=== PATIENT | female | born 1955 | race Caucasian/White ===

== ENCOUNTER → 2017-08-02 | Outpatient (CLI) | payer BC ==
[~2017-08-02] MED LIST: AMT/25 PO; CHOL2000 PO; CIPR-255 PO; CLBCRM30 EXT; FENO145T26 PO; MULT-506 PO; MULT-663 PO; OMEG10007 PO; OXYC7.5T65 PO; PHEN-775 PO
--- NOTE | 2017-08-02 12:50 | MAMMOGRAPHY REPORT ---
BILATERAL DIGITAL SCREENING MAMMOGRAM WITH CAD: 08/02/2017 CLINICAL HISTORY: Routine screening. Patient has no complaints. TECHNIQUE: Current study was also evaluated with a Computer Aided Detection (CAD) system. Bilateral CC and MLO views were obtained. COMPARISON: Comparison is made to exams dated: 08/01/2016 mammogram, 07/27/2015 mammogram, 4 mammogram, 07/22/2014 ultrasound, 07/13/2013 mammogram, and 07/09/2012 mammogram - [facility]. BREAST COMPOSITION: The tissue of both breasts is heterogeneously dense, which may obscure small mas ses. FINDINGS: No suspicious masses, calcifications, or areas of architectural distortion are noted in ei ther breast. There has been no significant interval change compared to prior exams. Scattered bilater al benign-appearing calcifications are not significantly changed. IMPRESSION: ACR BI-RADS CATEGORY 2: BENIGN There is no mammographic evidence of malignancy. A 1 year screening mammogram is recommended. The pa tient will receive written notification of the results. Approximately 10% of breast cancers are not detected with mammography. A negative mammographic report should not delay biopsy if a clinically suggestive mass is present. Angelica Patterson M.D. /:08/02/2017 12:23:55 Corporate Ethics Officer: Nayana Obrien, [facility] letter sent: Normal 1/2 BI-RADS Code: ACR BI-RADS Category 2: Benign
== END | disposition home or self-care (01) ==
LOC: C.MAMM 08:53
PROVIDERS: ATTEND Family Medicine
DX: Z12.31 Encounter for screening mammogram for malignant neoplasm of breast (principal)

== ENCOUNTER 2020-01-28 10:03 | Observation (INO) ==
--- NOTE | 2020-01-28 10:20 | Emergency Department Note ---
History of Present Illness General Chief complaint: Bite Stated complaint: INSECT BITE ON LT LEG Time Seen by Provider: 01/28/20 10:09 History of Present Illness Maximum Pain Intensity: 2 This is a 64-year-old female that presents to the emergency department via private vehicle with complaints of "insect bite on left leg". The patient states that this past Saturday evening she began with atraumatic left posterior knee swelling, specifically a small bump to the left posterior knee. She then awoke Saturday and notes that there was redness to the left posterior knee. She then was seen by the PCP on Saturday and prescribed Keflex. It was thought to either be mosquito or spider bite at that time. The patient states that she followed up with the PCP on Saturday and was worse despite the p.o. Keflex and was started on Bactrim. She had 2 doses yesterday and 1 dose today already. S he denies any pain at the site other than a small twinge of pain that is a 2/10 at times. She notes associated chills and hot sensation yesterday evening. She denies any history of DVT. She denies any pertinent past medical history or allergies. Home Medications Home Medications Medication Instructions Recorded Confirmed Type amitriptyline 25 mg PO HS 09/16/18 01/28/20 History calcium carbonate [Calcium 500] 500 mg PO QAM 09/16/18 01/28/20 History cholecalciferol (vitamin D3) 1,000 unit PO BID 09/16/18 01/28/20 History [Vitamin D3] fenofibrate micronized 134 mg PO PM 09/16/18 01/28/20 History multivitamin 1 tab PO QAM 09/16/18 01/28/20 History omega 0-zcn-nie-fish oil [Fish Oil] 1 cap PO QAM 09/16/18 01/28/20 History solifenacin 10 mg tablet 10 mg PO HS 06/18/19 01/28/20 History cephalexin 500 mg PO BID 01/28/20 01/28/20 History sulfamethoxazole-trimethoprim 1 tab PO BID 01/28/20 01/28/20 History Allergies Allergy/AdvReac Type Severity Reaction Status Date / Time No Known Drug Allergies Allergy Verified 01/28/20 11:10 Past Med/Surg History Medical History Fibromyalgia History of endometriosis Hyperlipidemia Osteoarthritis Scoliosis Surgical History History of bilateral tubal ligation History of cataract surgery LEFT 09/24/18: was given 2mg of versed and 100mcg of fentanyl without apparent complications History of colonoscopy History of esophagogastroduodenoscopy (EGD) History of oral surgery History of tonsillectomy Family History Mother Breast cancer Other Cancer Heart disease Hypertension Osteoporosis Social History Preferred Language: Israeli Communication Ability: Effective Mat Maker Required: No Beliefs That Will Affect Care: None Current Living Situation: Spouse Other Information That Helps Us Care for You: No Feels Safe at Home: Yes Safety Concerns: Feels Safe At This Time Smoking Status: Never smoker Second Hand Exposure: No ; Hx Alcohol Use: Yes Alcohol type: beer, wine and hard liquor Alcohol Intake Frequency: Rarely Hx Substance Use: No Review of Systems A total of 10 systems reviewed and were otherwise negative Physical Exam Vital Signs Vital Signs - 24 hr 01/28/20 10:05 01/28/20 11:45 01/28/20 13:30 Temperature 37.0 C Temperature Source Oral Pulse Rate 92 H Pulse Rate [Right Finger] 75 81 Pulse Rhythm [Right Finger] Regular Regular Pulse Strength [Right Finger] Normal Normal Respiratory Rate 20 18 18 Respiratory Effort / Characteristics Non-Labored Spontaneous Non-Labored Spontaneous Respiratory Depth Normal Normal Normal Respiratory Pattern Regular Regular Blood Pressure 158/79 H Blood Pressure [Right Arm] 144/76 H 149/71 H Blood Pressure Mean 105 Blood Pressure Mean [Right Arm] 98 97 Blood Pressure Position [Right Arm] Sitting Sitting Pulse Oximetry 95 98 98 Oxygen Delivery Method Room Air Room Air Room Air Sepsis Recent Fever Within 48 Hours No Sepsis Action Taken by Nursing No Action Required VITAL SIGNS - Vital signs and nursing notes were reviewed. Stable and afebrile. GENERAL -64-year-old female appearing her stated age who is in no acute di stress. Communicates well with provider and answers questions appropriately. SKIN -there is a large circular in nature patch of erythema to the left posterior knee region with a central area of minimally raised bulla. No active drainage. HEAD - NC/AT. EYES - PERRL with EOMI bilaterally. Sclera anicteric. EARS - No deformities of external structures noted on gross examination bilaterally. NOSE - Midline and without cyanosis. No epistaxis or purulent drainage noted. MOUTH/OROPHARYNX - Without perioral cyanosis. LUNGS - Chest wall symmetric without accessory muscle use, intercostals retractions, or central cyanosis. Normal vesicular breath sounds CTA B/L. No wheezes, rales, or rhonchi appreciated. CARDIAC - RRR with S1/S2. No murmur, rubs, or gallops appreciated. EXTREMITIES - No clubbing or peripheral cyanosis. No pretibial edema present. Skin as above. There is mild edema to left posterior knee region. +5/5 strength noted in UE/LE bilaterally. NEUROLOGIC - Cranial nerves II through XII grossly intact. Sensory intact to light touch throughout. PSYCH - A&O, and cooperates fully with examiner. Pt is very pleasant and interacts well with examiner. Course Administered Medications Vancomycin HCl 1,500 mg/ (Sodium Chloride) 530 mls @ 200 mls/hr IV NOW ONE Stop: 01/28/20 15:28 Last Admin: 01/28/20 14:00 Dose: 200 mls/hr Documented by: [id number] Discontinued Medications Ceftriaxone Sodium (Rocephin) 1,000 mg in 50 mls @ 100 mls/hr IV NOW STA Stop: 01/28/20 13:19 Last Admin: 01/28/20 13:30 Dose: 100 mls/hr Documented by: [id number] Medical Decision Making Laboratory Data Result diagrams: 01/28/20 11:02 01/28/20 11:02 Lab Results 01/28/20 01/28/20 01/28/20 Range/Units 11:02 11:02 11:02 WBC 4.44 L (4.8-10.8) K/uL RBC 3.86 L (4.2-5.4) M/uL Hgb 11.2 L (12.0-16.0) g/dL Hct 34.4 L (37-47) % MCV 89.1 (80-100) fL MCH 29.0 (25-34) pg MCHC 32.6 (32-36) g/dL RDW Std Deviation 42.9 (36.4-46.3) fL RDW Coeff of Rene 13.2 (11.5-14.5) % Plt Count 256 (130-400) K/uL MPV 10.0 (7.4-10.4) fL Immature Gran % (Auto) 0.0 % Neut % (Auto) 54.9 % Lymph % (Auto) 25.9 % Oldham % (Auto) 15.5 % Eos % (Auto) 3.2 % Baso % (Auto) 0.5 % Neut # (Auto) 2.44 (1.4-6.5) K/uL Lymph # (Auto) 1.15 L (1.2-3.4) K/uL Oldham # (Auto) 0.69 H (0.11-0.59) K/uL Eos # (Auto) 0.14 (0-0.5) K/uL Baso # (Auto) 0.02 (0-0.2) K/uL Immature Gran # (Auto) 0.00 (0.00-0.02) K/uL Sodium 137 (136-145) mmol/L Potassium 3.8 (3.5-5.1) mmol/L Chloride 107 (98-107) mmol/L Carbon Dioxide 23 (21-32) mmol/L Anion Gap 7.0 (3-11) BUN 16 (7-18) mg/dl Creatinine 1.19 (0.6-1.2) mg/dl Est Cr Clr Drug Dosing 49.5 ml/min Est GFR ( Amer) 55.1 Est GFR (Non-Af Amer) 47.5 BUN/Creatinine Ratio 13.4 (10-20) Glucose 85 (70-99) mg/dl Lactate (0.4-2.0) mmol/L Calcium 9.5 (8.5-10.1) mg/dl Magnesium 2.2 (1.8-2.4) mg/dl Total Bilirubin 0.4 (0.2-1) mg/dl AST 35 (15-37) U/L ALT 47 (12-78) U/L Alkaline Phosphatase 50 (45-117) U/L Total Protein 7.6 (6.4-8.2) gm/dl Albumin 3.6 (3.4-5.0) gm/dl Globulin 4.0 (2.5-4.0) gm/dl Albumin/Globulin Ratio 0.9 (0.9-2) Lyme Disease IgG Ab Negative (Negative) Lyme Disease IgM Ab Negative (Negative) 01/28/20 Range/Units 11:02 WBC (4.8-10.8) K/uL RBC (4.2-5.4) M/uL Hgb (12.0-16.0) g/dL Hct (37-47) % MCV (80-100) fL MCH (25-34) pg MCHC (32-36) g/dL RDW Std Deviation (36.4-46.3) fL RDW Coeff of Rene (11.5-14.5) % Plt Count (130-400) K/uL MPV (7.4-10.4) fL Immature Gran % (Auto) % Neut % (Auto) % Lymph % (Auto) % Oldham % (Auto) % Eos % (Auto) % Baso % (Auto) % Neut # (Auto) (1.4-6.5) K/uL Lymph # (Auto) (1.2-3.4) K/uL Oldham # (Auto) (0.11-0.59) K/uL Eos # (Auto) (0-0.5) K/uL Baso # (Auto) (0-0.2) K/uL Immature Gran # (Auto) (0.00-0.02) K/uL Sodium (136-145) mmol/L Potassium (3.5-5.1) mmol/L Chloride (98-107) mmol/L Carbon Dioxide (21-32) mmol/L Anion Gap (3-11) BUN (7-18) mg/dl Creatinine (0.6-1.2) mg/dl Est Cr Clr Drug Dosing ml/min Est GFR ( Amer) Est GFR (Non-Af Amer) BUN/Creatinine Ratio (10-20) Glucose (70-99) mg/dl Lactate 0.6 (0.4-2.0) mmol/L Calcium (8.5-10.1) mg/dl Magnesium (1.8-2.4) mg/dl Total Bilirubin (0.2-1) mg/dl AST (15-37) U/L ALT (12-78) U/L Alkaline Phosphatase (45-117) U/L Total Protein (6.4-8.2) gm/dl Albumin (3.4-5.0) gm/dl Globulin (2.5-4.0) gm/dl Albumin/Globulin Ratio (0.9-2) Lyme Disease IgG Ab (Negative) Lyme Disease IgM Ab (Negative) Imaging Data Radiologist's Impression: ULTRASOUND LEFT LOWER EXTREMITY VENOUS CLINICAL HISTORY: Left leg swelling. COMPARISON STUDY: No priors. TECHNIQUE: Real-time, grayscale, and color Doppler sonography of the deep veins of the left lower extremity was performed from the inguinal crease to the calf. Compression and augmentation were utilized. FINDINGS: There is no sonographic evidence of deep venous thrombosis identified in the left lower extremity. The common femoral, superficial femoral, and popliteal veins are patent and normally compressible. The greater saphenous vein and the profunda femoris vein at the junction with the common femoral vein are clear. The visualized calf veins are patent. IMPRESSION: There is no sonographic evidence of deep venous thrombosis identified in the left lower extremity. ACT 112: Negative or not required by law. Electronically signed by: Tanner Medel M.D. 01/28/2020 12:17 PM ULTRASOUND LEFT LOWER EXTREMITY NONVASCULAR CLINICAL HISTORY: Left posterior knee swelling and erythema. COMPARISON STUDY: No priors. FINDINGS: Real-time, grayscale, and color flow sonography of the soft tissues posterior to the knee is performed. There is soft tissue edema identified posterior to the knee and upper calf at the site of interest. There is subcutaneous fluid identified with no organized/drainable fluid collection seen. There is no significant regional hyperemia on color imaging. IMPRESSION: Soft tissue edema and subcutaneous fluid is identified in the popliteal soft tissues and in the upper calf at the site of interest. Correlate clinically for evidence of cellulitis or possibly a ruptured popliteal cyst. Clinical follow-up to resolution is recommended. Electronically signed by: Tanner Medel M.D. 01/28/2020 12:20 PM [facility] Narrative Patient was seen and evaluated as above in room C12. Review was performed of nursing notes and vital signs. I did review pertinent previous visits and patient history. After obtaining a thorough history and physical examination the above work up was performed. She presents to us today with atraumatic erythema and edema to the left posterior calf. On examination this is cellulitis but certainly wanted to obtain ultrasound to rule out deeper clot versus abscess. She has been on antibiotics for the past several days. There is decrease in white blood cell, red blood cell and hemoglobin. This was compared to previous and these are somewhat newer findings. Ultrasound results as above. No DVT. No drainable abscess. I did review the labs with the patient. Given the patient with worsening infection despite continued p.o. antibiotics I do believe that further evaluation and management in the inpatient setting would be warranted. I will note that she did just start the Bactrim yesterday and is only had 3 total doses however given the size of the erythema and involvement do believe IV antibiotics inpatient are warranted. I did consider providing Dalvance to the patient however given that there are small bulla formation in the central most area of the infection do believe that it would not be reasonable to use this medication. I chose vancomycin and Rocephin. I discussed the case with the hospitalist. Please refer to further documentation regarding her stay. While in the department, I personally reevaluated the patient several times and each time the patient was found to be resting comfortably. The patient was educated upon management, educated upon todays findings/results, educated upon importance of follow up from today's visit, educated upon symptoms in which to return, had questions answered prior to discharge, verbalized understanding, and was discharged home in good condition. Case was discussed with the attending physician. In the evaluation and treatment of this patient the following differential diagnoses were entertained: Cellulitis, abscess, DVT, popliteal cyst, sepsis, lymphangitis, among others. Impression & Plan Cellulitis of left leg Discharge Plan Visit Data Chief Complaint: Bite Stated Complaint: INSECT BITE ON LT LEG ED Provider: [facility] Midlevel Provider: Anthony Ruggiero Discharge Problem: Cellulitis of left leg Patient Disposition: Admitted As Inpatient Condition: Good Discharge Instructions Interventions: ED Discharge Assessment Last Done: 01/28/20 15:01 Forms Stand Alone Forms: My [facility], Virtual Emergency Department, Important Visit Information Prescriptions Prescriptions: No Action solifenacin [Vesicare] 10 mg tablet 10 mg PO HS RF: 0 multivitamin Tablet 1 tab PO QAM RF: 0 fenofibrate micronized 134 mg Capsule 134 mg PO PM RF: 0 amitriptyline 25 mg Tablet 25 mg PO HS RF: 0 cholecalciferol (vitamin D3) [Vitamin D3] 2,000 unit Capsule 1,000 unit PO BID RF: 0 omega 5-hmy-lsn-fish oil [Fish Oil] 1,000 mg (120 mg-180 mg) Capsule 1 cap PO QAM RF: 0 calcium carbonate [Calcium 500] 500 mg calcium (1,250 mg) Tablet 500 mg PO QAM RF: 0 sulfamethoxazole-trimethoprim 800-160 mg tablet 1 tab PO BID RF: 0 cephalexin 500 mg capsule 500 mg PO BID RF: 0 Referrals Referrals: Shannan Lopez DO [Primary Care Provider] -
[2020-01-28 11:26] LABS: Basophils # (auto) 0.02 K/uL (0-0.2); Basophils % (auto) 0.5 %; Eosinophils # (auto) 0.14 K/uL (0-0.5); Eosinophils % (auto) 3.2 %; Hematocrit (blood only) 34.4 % (37-47); Hemoglobin 11.2 g/dL (12.0-16.0); Lymphocytes # (auto) 1.15 K/uL (1.2-3.4); Lymphocytes % (auto) 25.9 %; Mean Corpuscular Hgb Conc 32.6 g/dL (32-36); Mean Corpuscular Volume 89.1 fL (80-100); Monocytes # (auto) 0.69 K/uL (0.11-0.59); Monocytes % (auto) 15.5 %; Neutrophils # (auto) 2.44 K/uL (1.4-6.5); Neutrophils % (auto) 54.9 %; Platelet Count 256 K/uL (130-400); RDW Coefficient of Variation 13.2 % (11.5-14.5); RDW Standard Deviation 42.9 fL (36.4-46.3); Red Blood Count 3.86 M/uL (4.2-5.4); White Blood Count 4.44 K/uL (4.8-10.8)
[2020-01-28 11:42] LABS: Albumin Level 3.6 gm/dl (3.4-5.0); BUN Creatinine Ratio 13.4 (10-20); Calcium 9.5 mg/dl (8.5-10.1); Creatinine Clr Calc Pharmacy 49.5 ml/min; Est GFR (African American) 55.1; Est GFR (Non-African American) 47.5; Magnesium 2.2 mg/dl (1.8-2.4); Potassium 3.8 mmol/L (3.5-5.1)
[2020-01-28 11:44] LABS: Albumin Globulin Ratio 0.9 (0.9-2); Bilirubin,Total 0.4 mg/dl (0.2-1); Total Protein 7.6 gm/dl (6.4-8.2)
[2020-01-28 12:18] LABS: Lyme Ab IgM w/WB Rflx Negative (Negative)
--- NOTE | 2020-01-28 12:19 | Ultrasound Report ---
ULTRASOUND LEFT LOWER EXTREMITY VENOUS CLINICAL HISTORY: Left leg swelling. COMPARISON STUDY: No priors. TECHNIQUE: Real-time, grayscale, and color Doppler sonography of the deep veins of the left lower ext remity was performed from the inguinal crease to the calf. Compression and augmentation were utilized . FINDINGS: There is no sonographic evidence of deep venous thrombosis identified in the left lower ext remity. The common femoral, superficial femoral, and popliteal veins are patent and normally compress ible. The greater saphenous vein and the profunda femoris vein at the junction with the common femora l vein are clear. The visualized calf veins are patent. IMPRESSION: There is no sonographic evidence of deep venous thrombosis identified in the left lower e xtremity. ACT 112: Negative or not required by law. Electronically signed by: Tanner Medel M.D. 01/28/2020 12:17 PM
[2020-01-28 12:21] LABS: Lyme Ab IgG w/WB Rflx Negative (Negative)
--- NOTE | 2020-01-28 12:21 | Ultrasound Report ---
ULTRASOUND LEFT LOWER EXTREMITY NONVASCULAR CLINICAL HISTORY: Left posterior knee swelling and erythema. COMPARISON STUDY: No priors. FINDINGS: Real-time, grayscale, and color flow sonography of the soft tissues posterior to the knee i s performed. There is soft tissue edema identified posterior to the knee and upper calf at the site o f interest. There is subcutaneous fluid identified with no organized/drainable fluid collection seen. There is no significant regional hyperemia on color imaging. IMPRESSION: Soft tissue edema and subcutaneous fluid is identified in the popliteal soft tissues and in the upper calf at the site of interest. Correlate clinically for evidence of cellulitis or possibl y a ruptured popliteal cyst. Clinical follow-up to resolution is recommended. Electronically signed by: Tanner Medel M.D. 01/28/2020 12:20 PM
[2020-01-28] MEDS ORDERED: VANCOMYCIN HCL 1,500 MG in SODIUM CHLORIDE 0.9% 500 ML IV ONE (12:50)
[2020-01-28] MEDS ORDERED: VANCOMYCIN CONSULT ACTIVE PRN ×2 (12:50→15:55)
[2020-01-28] MEDS ORDERED: cefTRIAXone SODIUM 1,000 MG/50 ML BAG IV STA (12:50)
--- NOTE | 2020-01-28 13:28 | History & Physical Report ---
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 Pt states that she first noted a bump on the back of her L knee on Saturday. It was not red and no swelling or pain at that time. On Saturday she noticed it was red and "spreading" around the back of her knee. She was seen by PCP on Saturday and started on keflex. She had worsening of the redness and swelling. As well as developing blisters and TTP around the site. She returned to PCP yesterday for f/u and region was noted to be worse. She was changed to bactrim at that time. She started the bactrim last night and took another dose this AM. She felt that the region was not worse today, but not improving, so she came to the ED. The blister on the posterior knee ruptured on its own. She did not manipulate it at all. Pt states that otherwise she has felt fine. She has no pain to the L posterior knee until she pushes on it. Pt denies fever, SOB, chest pain, abd pain, n/v/c/ d. Pt denies prior hx of similar issues or hx of abx resistant infections. 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 No one in her family with hx of resistant infections either. She does not remember a bug bite or trauma to the area. Allergies Allergy/AdvReac Type Severity Reaction Status Date / Time No Known Drug Allergies Allergy Verified 01/28/20 11:10 Home Medications Home Medications Medication Instructions Recorded Confirmed Type amitriptyline 25 mg PO HS 09/16/18 01/28/20 History calcium carbonate [Calcium 500] 500 mg PO QAM 09/16/18 01/28/20 History cholecalciferol (vitamin D3) 1,000 unit PO BID 09/16/18 01/28/20 History [Vitamin D3] fenofibrate micronized 134 mg PO PM 09/16/18 01/28/20 History multivitamin 1 tab PO QAM 09/16/18 01/28/20 History omega 7-hzk-wif-fish oil [Fish Oil] 1 cap PO QAM 09/16/18 01/28/20 History solifenacin 10 mg tablet 10 mg PO HS 06/18/19 01/28/20 History cephalexin 500 mg PO BID 01/28/20 01/28/20 History sulfamethoxazole-trimethoprim 1 tab PO BID 01/28/20 01/28/20 History Past Med/Surg History Medical History Fibromyalgia History of endometriosis Hyperlipidemia Osteoarthritis Scoliosis Surgical History History of bilateral tubal ligation History of cataract surgery LEFT 09/24/18: was given 2mg of versed and 100mcg of fentanyl without apparent complications History of colonoscopy History of esophagogastroduodenoscopy (EGD) History of oral surgery History of tonsillectomy Family History Mother Breast cancer Other Cancer Heart disease Hypertension Osteoporosis Social History (Updated 01/28/20 @ 13:25 by Diana Payan DO) Preferred Language: Japanese Communication Ability: Effective Exercise Planner Required: No Beliefs That Will Affect Care: None Current Living Situation: Spouse Other Information That Helps Us Care for You: No Feels Safe at Home: Yes Safety Concerns: Feels Safe At This Time Smoking Status: Never smoker Second Hand Exposure: No ; Hx Alcohol Use: Yes Alcohol type: beer, wine and hard liquor Alcohol Intake Frequency: Rarely Hx Substance Use: No Review of Systems Review of Systems: Pertinent positives and negatives reviewed in HPI--all others negative Physical Exam Constitutional: WD/WN, vitals as above Eyes: normal visual saeed by confrontation and + anicteric sclerae Neck: normal visual inspection and trachea midline Respiratory: normal respiratory effort, lungs clear to auscultation Cardiovascular: Rate/Rhythm: regular rate and regular rhythm Gastrointestinal (Abdomen): Inspection/Auscultation: abdomen not distended Percussion/Palpation: abdomen soft; abdomen nontender Musculoskeletal: Head/Neck/Chest: normocephalic and head atraumatic negative for pedal edema, peripheral pulses intact Skin: L posterior aspect of knee with rupture blister, redness, swelling, TTP Ink lines in place Neurologic: awake; not confused Speech / Cognition: normal speech Psychiatric: A+Ox3, euthymic affect Results & Data Results & Data ([facility]) Vital Signs (Past 12 Hours) Vital Signs Temp Pulse Resp BP Pulse Ox 01/28/20 10:05 37.0 C 92 H 20 158/79 H 95 Diagnostic Findings L LE US: neg for DVT, neg for abscess Noted for cellulitis vs ruptured popliteal cyst Code Status & VTE Plan Code Status Full code VTE Prophylaxis Plan VTE Prophylaxis will be ordered: Yes PG Care Time/CCT Total # of Minutes Spent Total Time Spent with Patient: Total time spent is greater than 50% in coordination of care (as documented) at patient's floor/unit and/or counseling patient: Coding Level of Care Code 82052 OBS Care - Level 3 Diagnoses Cellulitis of left leg L03.116 Hypokalemia E87.6 Abnormal WBC count D72.9 Fibromyalgia M79.7 Hyperlipidemia E78.5 DVT prophylaxis Z29.9
[2020-01-28] MEDS ORDERED: MAGNESIUM HYDROXIDE SUSP 30 ML UDC PO PRN (15:55)
[2020-01-28] MEDS ORDERED: ONDANSETRON INJ 2 MG/ML 2 ML VIAL IV PRN (15:55)
[2020-01-28] MEDS ORDERED: POTASSIUM PHOS 3 MMOL/1 ML INFUSION IV STA (15:55)
[2020-01-28] MEDS ORDERED: ACETAMINOPHEN 325 MG TAB PO PRN (15:55)
[2020-01-28] MEDS ORDERED: POTASSIUM PHOSPHATE 15 MMOL in SODIUM CHLORIDE 0.9% 250 ML IV ONE (16:30)
--- NOTE | 2020-01-28 18:34 | Pharmacy Report ---
Pharmacy Abx Initial Consult - Date of Service January 28, 2020 - Pharmacy Dosing Scope Date of Consult: 01/28/20 Consultation requested by: Dr. Payan Pharmacy is consulted to initiate Vancomycin IV/PO dosing therapy, order appropriate labs and adjust drug dose/frequency. - Subjective The patient is a 64 year old F admitted on 01/28/20 13:23. - Objective Height: 5 ft 7 in Weight: 76.2 kg Vital Signs (Past 12hrs): Vital Signs Temp Pulse Pulse Resp BP BP Pulse Ox 01/28/20 15:49 37.1 C 87 18 158/55 H 98 01/28/20 13:30 81 18 149/71 H 98 01/28/20 11:45 75 18 144/76 H 98 01/28/20 10:05 37.0 C 92 H 20 158/79 H 95 Lab Results (24hrs): Laboratory Tests (24 Hours) 01/28/20 01/28/20 11:02 11:02 WBC 4.44 L Neut # (Auto) 2.44 Creatinine 1.19 Est Cr Clr Drug Dosing 49.5 Micro Results: 01/28/20 11:06 Aerobic Blood Culture - Pending Blood Anaerobic Blood Culture - Pending 01/28/20 11:02 Aerobic Blood Culture - Pending Blood Anaerobic Blood Culture - Pending - Risk Factors for Resistance * Antimicrobial use within the last 90 days: Keflex, Bactrim - Assessment & Plan Assessment 64 year old F admitted for cellulitis. * Failed keflex and bactrim as outpatient. * Blood cultures pending * Renal function appears to be at baseline * Patient meets criteria for vancomycin AUC dosing nomogram. AUC/IESHA is the preferred PK/PD target for vancomycin * Target AUC/IESHA = 400-600 * AUC guided dosing is effective and associated with decreased risk of nephrotoxicity Plan Vancomycin for treatment of cellulitis. Vancomycin IV * Estimated PK Parameters: Vd 0.7 L/kg, Kali 0.045 hr-1, t1/2 ~15 hr * Loading dose: 1500 mg (20 mg/kg) * Maintenance dose: 1000 mg IV (13 mg/kg) every 12 hours (based on AUC nomogram) * Goal trough level for cellulitis : 10 to 15 mcg/mL * Trough/Random level ordered for 01/30/20 @1130, prior to fourth maintenance dose. Pharmacy will continue to follow and will adjust dose/frequency as necessary. Thank you.
[2020-01-28] MEDS: CHOLECALCIFEROL 1,000 UNITS 25 MCG TAB PO SCH (20:46)
[2020-01-28] MEDS: FENOFIBRATE NANOCRYSTALLIZED 145 MG TABLET PO SCH (20:46)
[2020-01-28] MEDS: AMITRIPTYLINE HCL 25 MG TAB PO SCH (20:46)
[2020-01-28] MEDS: VANCOMYCIN HCL 1,000 MG in SODIUM CHLORIDE 0.9% 250 ML IV SCH (23:34)
[2020-01-29] MEDS ORDERED: VANCOMYCIN HCL 1,000 MG in SODIUM CHLORIDE 0.9% 250 ML IV SCH
[2020-01-29 08:16] LABS: Basophils # (auto) 0.03 K/uL (0-0.2); Basophils % (auto) 0.8 %; Eosinophils # (auto) 0.29 K/uL (0-0.5); Eosinophils % (auto) 7.8 %; Hematocrit (blood only) 34.8 % (37-47); Hemoglobin 11.2 g/dL (12.0-16.0); Immature Granulocytes # (auto) 0.01 K/uL (0.00-0.02); Immature Granulocytes % (auto) 0.3 %; Lymphocytes # (auto) 1.44 K/uL (1.2-3.4); Lymphocytes % (auto) 38.5 %; Mean Corpuscular Hemoglobin 29.2 pg (25-34); Mean Corpuscular Hgb Conc 32.2 g/dL (32-36); Mean Corpuscular Volume 90.6 fL (80-100); Mean Platelet Volume 10.5 fL (7.4-10.4); Monocytes # (auto) 0.51 K/uL (0.11-0.59); Monocytes % (auto) 13.6 %; Neutrophils # (auto) 1.46 K/uL (1.4-6.5); Platelet Count 269 K/uL (130-400); RDW Coefficient of Variation 13.3 % (11.5-14.5); Red Blood Count 3.84 M/uL (4.2-5.4); White Blood Count 3.74 K/uL (4.8-10.8)
[2020-01-29] MEDS: MULTIVITAMIN TAB PO SCH (08:27)
[2020-01-29] MEDS: CHOLECALCIFEROL 1,000 UNITS 25 MCG TAB PO SCH ×2 (08:28→20:55)
[2020-01-29] MEDS: OMEGA-3 (PURIFIED FISH OIL) 1 GM CAP PO SCH (08:28)
[2020-01-29] MEDS: CALCIUM CARBONATE 1250MG TAB PO SCH (08:28)
[2020-01-29 08:51] LABS: BUN Creatinine Ratio 12.1 (10-20); Calcium 9.1 mg/dl (8.5-10.1); Creatinine Clr Calc Pharmacy 52.1 ml/min; Est GFR (African American) 58.7; Est GFR (Non-African American) 50.6; Potassium 4.2 mmol/L (3.5-5.1)
--- NOTE | 2020-01-29 10:37 | Hospitalist Progress Note ---
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 (2) Hypokalemia: Replace and monitor (3) Abnormal WBC count: Low normal (5.9, 04/2019) prior Monitor (4) Fibromyalgia: continue amitriptyline (5) Hyperlipidemia: continue home meds (6) DVT prophylaxis: SCDs Admission and Anticipated Discharge Date Admission Date: January 28, 2020 Subjective Ms. Claudio has no pain. She did have some aches and chills before coming in but is no longer experiencing this. Her leg wound is improving ROS Constitutional: no chills, aches, sweats or fever Respiratory: no sob,cough, sputum, or wheezing Cardiac: no chest pain, palpitations, edema, orthopnea or lightheadedness GI: no abdominal pain, nausea, vomiting, diarrhea or constipation : no dysuria or hesitancy Extremities: no joint pain or weakness Skin:see HPI All other systems reviewed and negative Physical Exam Physical Exam: General: no distress Eyes: normal inspection, PERLL Respiratory: chest non tender, clear to auscultation, normal breath sounds, no respiratory distress, no accessory muscle use Cardiac: regular rate and rhythm, no rub or gallop, no murmur, no edema, no jvd GI/: active bowel sounds, no abd pain or tenderness, soft, non distended Extremities: normal range of motion, normal strength, non tender Neuro/Psych: alert and oriented x 3, normal mood and affect Skin: normal color, dry, rash decreased from demarcated border, no fluctuance, some induration around wound site Results & Data Results & Data ([facility]) Vital Signs (Past 12 Hours) Vital Signs Temp Pulse Resp BP Pulse Ox 01/29/20 07:55 36.8 C 87 16 135/74 94 01/29/20 03:46 36.9 C 74 16 151/78 H 95 01/28/20 23:53 36.9 C 20 149/59 H 97 PG Care Time/CCT Total # of Minutes Spent Total Time Spent with Patient: Total time spent is greater than 50% in coordination of care (as documented) at patient's floor/unit and/or counseling patient: Coding Level of Care Code 86172 Subseq Hosp Care Lvl 2 Diagnoses Cellulitis of left leg L03.116 Hypokalemia E87.6 Abnormal WBC count D72.9 Fibromyalgia M79.7 Hyperlipidemia E78.5 DVT prophylaxis Z29.9
[2020-01-29] MEDS ORDERED: cefTRIAXone SODIUM 1,000 MG in DEXTROSE 5% 50 ML IV SCH (12:00)
[2020-01-29] MEDS: VANCOMYCIN HCL 1,000 MG in SODIUM CHLORIDE 0.9% 250 ML IV SCH ×2 (12:17→23:45)
[2020-01-29] MEDS: AMITRIPTYLINE HCL 25 MG TAB PO SCH (20:55)
[2020-01-29] MEDS: FENOFIBRATE NANOCRYSTALLIZED 145 MG TABLET PO SCH (20:55)
[2020-01-30] MEDS: CHOLECALCIFEROL 1,000 UNITS 25 MCG TAB PO SCH (09:44)
[2020-01-30] MEDS: OMEGA-3 (PURIFIED FISH OIL) 1 GM CAP PO SCH (09:45)
[2020-01-30] MEDS: MULTIVITAMIN TAB PO SCH (09:45)
[2020-01-30] MEDS: CALCIUM CARBONATE 1250MG TAB PO SCH (09:45)
[2020-01-30] MEDS ORDERED: VANCOMYCIN TROUGH ONE (11:30)
[2020-01-30 11:44] LABS: Basophils # (auto) 0.05 K/uL (0-0.2); Basophils % (auto) 1.1 %; Eosinophils # (auto) 0.22 K/uL (0-0.5); Hematocrit (blood only) 36.4 % (37-47); Hemoglobin 11.7 g/dL (12.0-16.0); Immature Granulocytes # (auto) 0.02 K/uL (0.00-0.02); Immature Granulocytes % (auto) 0.5 %; Lymphocytes # (auto) 2.11 K/uL (1.2-3.4); Lymphocytes % (auto) 47.7 %; Mean Corpuscular Hemoglobin 29.1 pg (25-34); Mean Corpuscular Hgb Conc 32.1 g/dL (32-36); Mean Corpuscular Volume 90.5 fL (80-100); Mean Platelet Volume 10.1 fL (7.4-10.4); Monocytes # (auto) 0.36 K/uL (0.11-0.59); Monocytes % (auto) 8.1 %; Neutrophils # (auto) 1.66 K/uL (1.4-6.5); Neutrophils % (auto) 37.6 %; Platelet Count 331 K/uL (130-400); RDW Coefficient of Variation 13.1 % (11.5-14.5); RDW Standard Deviation 43.7 fL (36.4-46.3); Red Blood Count 4.02 M/uL (4.2-5.4); White Blood Count 4.42 K/uL (4.8-10.8)
[2020-01-30 12:03] LABS: Albumin Level 3.5 gm/dl (3.4-5.0); BUN Creatinine Ratio 15.2 (10-20); Calcium 9.7 mg/dl (8.5-10.1); Creatinine Clr Calc Pharmacy 51.2 ml/min; Est GFR (African American) 57.4; Est GFR (Non-African American) 49.5; Potassium 3.9 mmol/L (3.5-5.1)
[2020-01-30 12:05] LABS: Albumin Globulin Ratio 0.8 (0.9-2); Bilirubin,Total 0.4 mg/dl (0.2-1); Globulin 4.4 gm/dl (2.5-4.0); Total Protein 7.9 gm/dl (6.4-8.2)
[2020-01-30] MEDS: VANCOMYCIN HCL 1,000 MG in SODIUM CHLORIDE 0.9% 250 ML IV SCH (12:13)
--- NOTE | 2020-01-30 12:46 | Pharmacy Report ---
Pharmacy Abx Dose Short Note - Date of Service January 30, 2020 - Assessment & Plan Laboratory Tests 01/30/20 11:27 Vancomycin Trough 15.7 Assessment 64 year old F receiving Vancomycin for treatment of Cellulitis Blood cultures x2 show NGTD. SCr stable. Day # 3 of antimicrobial therapy. Patient also receiving Rocephin 1 gram IV q24- day #3 Plan Vancomycin * Trough level of 15.7 mcg/mL is therapeutic * Continue dose of 1000 mg IV every 12 hours * Goal trough level for Cellulitis: ~15 mcg/mL * Trough level ordered for: 02/01/20 at 1130 Pharmacy will continue to follow and will adjust dose/frequency as necessary. Thank you.
--- NOTE | 2020-01-30 13:32 | Discharge Summary ---
Date of Service January 30, 2020 Admission HPI Per Admitting Provider 64 y/o F c/o worsening LE redness and swelling. Pt states that she first noted a bump on the back of her L knee on Saturday. It was not red and no swelling or pain at that time. On Saturday she noticed it was red and "spreading" around the back of her knee. She was seen by PCP on Saturday and started on keflex. She had worsening of the redness and swelling. As well as developing blisters and TTP around the site. She returned to PCP yesterday for f/u and region was noted to be worse. She was changed to bactrim at that time. She started the bactrim last night and took another dose this AM. She felt that the region was not worse today, but not improving, so she came to the ED. The blister on the posterior knee ruptured on its own. She did not manipulate it at all. Pt states that otherwise she has felt fine. She has no pain to the L posterior knee until she pushes on it. Pt denies fever, SOB, chest pain, abd pain, n/v/c/d. Pt denies prior hx of similar issues or hx of abx resistant infections. 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 No one in her family with hx of resistant infections either. She does not remember a bug bite or trauma to the area. Principal Diagnosis Cellulitis Discharge Exam Constitutional WD/WN, vitals as above Respiratory normal respiratory effort, lungs clear to auscultation Cardiovascular RRR, no murmur, no edema Gastrointestinal (Abdomen) Inspection/Auscultation: abdomen normal to inspection and normal bowel sounds; abdomen not distended Percussion/Palpation: abdomen soft; abdomen nontender Musculoskeletal no cyanosis or clubbing, extremities motor strength 5/5 Skin erythema much decreased from yesterday, still with some induration around wound site Neurologic moves all extremities and awake Psychiatric A+Ox3, euthymic affect Discharge Data Allergies Allergy/AdvReac Type Severity Reaction Status Date / Time No Known Drug Allergies Allergy Verified 01/28/20 11:10 Consultations 01/28/20 12:51 ED Decision to Admit Stat Ordered Studies 01/28/20 10:20 US extremity non-vascular ltd Stat US venous doppler LE LT Stat Hospital Course (1) Cellulitis of left leg: LE US noted for cellulitis vs ruptured popliteal cyst No swelling of calf noted making ruptured cyst less likely Appears more infectious overall LE US noted for no DVT or abscess Failed outpt keflex, bactrim (although only 2 doses of bactrim given) 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 BC ngtd Rash with much decreased border from demarcated line at admission. No pain, afebrile, low wbc improving (2) Hypokalemia: resolved (3) Abnormal WBC count: Low normal (5.9, 04/2019) prior Today 4.42, would have patient follow up with pcp (4) Fibromyalgia: continue amitriptyline (5) Hyperlipidemia: continue home meds (6) DVT prophylaxis: SCDs Total Time Total Time Spent Total Time Spent (In Minutes): greater than 30 minutes Discharge Plan Discharge Items Patient Disposition: Home - Self-Care Reason For Visit: LLE CELLULITIS,FAILED OUTPT TX Discharge Diagnosis: Cellulitis Condition on Discharge: Good Activity: Resume your previous activity Non-emergency contact: Primary Care Provider Call non-emergency contact if: you have any medication questions, your symptoms worsen, your pain is worsening, you have a fever and your wound has increased drainage Follow-up/Referrals: Shannan Lopez DO [Primary Care Provider] - Diet: Regular Addtl Attending Provider Instructions: You will go home with Cefdinir and Bactrim, both of which are taken twice per day for seven days. You had an ultrasound of your lower extremity which did not show any blood clot or abscess but did show cellulitis. Please follow up with your primary care provider next week Your white blood cell count came up today to 4.42 which just below normal. You can ask your doctor at your next appointment if they would like to recheck the level to ensure it has rebounded completely Pending Studies at Discharge: No Stand-Alone Forms: My [employer], Smoking Cessation Medications and DC Order Prescriptions: New cefdinir 300 mg capsule 300 mg PO BID 7 Days Qty: 14 RF: 0 Continued solifenacin [Vesicare] 10 mg tablet 10 mg PO HS RF: 0 multivitamin Tablet 1 tab PO QAM RF: 0 fenofibrate micronized 134 mg Capsule 134 mg PO PM RF: 0 amitriptyline 25 mg Tablet 25 mg PO HS RF: 0 cholecalciferol (vitamin D3) [Vitamin D3] 2,000 unit Capsule 1,000 unit PO BID RF: 0 omega 2-vtt-rlm-fish oil [Fish Oil] 1,000 mg (120 mg-180 mg) Capsule 1 cap PO QAM RF: 0 calcium carbonate [Calcium 500] 500 mg calcium (1,250 mg) Tablet 500 mg PO QAM RF: 0 sulfamethoxazole-trimethoprim 800-160 mg tablet 1 tab PO BID RF: 0 Discontinued cephalexin 500 mg capsule 500 mg PO BID RF: 0 Discharge Orders: Discharge Order (Routine); Ordered 01/30/20 Ordered By: Liz Soto Admission Data Admit Date/Time: 01/28/20 13:23 Attending Provider: Dwayne Morales Admit Provider: Diana Payan Primary Care Provider: Shannan Lopez Other Providers: Dwayne Morales Other Interventions: Discharge Summary Assessment (RN) Last Done: 01/30/20 15:54 Supervising Physician Co-Signing Physician Notes I supervised Liz Soto NP on this patient's care. I examined the patient today independently of her. I discussed the plan of care with her with the plan being as written in her note except for any following changes/exceptions: None. Patient feeling well today. No fever. Overall leg is improving, though still with wound and clear erythema still present. However, all within the demarcated area. Coding Level of Care Code D/C Day Management >30 mins Diagnoses Cellulitis of left leg L03.116 Hypokalemia E87.6 Abnormal WBC count D72.9 Fibromyalgia M79.7 Hyperlipidemia E78.5 DVT prophylaxis Z29.9
[2020-01-31] MEDS ORDERED: VANCOMYCIN TROUGH ONE (05:30)
[2020-02-01] MEDS ORDERED: VANCOMYCIN TROUGH ONE (11:30)
== END 2020-01-30 18:30 | disposition home or self-care (01) ==
LOC: 2N 10:03 → ED 10:03 → SUATTDRO 13:23 → 2N 15:01 → 3W 01-29 04:09